=== PATIENT | female | born 1965 | race Caucasian/White ===

== ENCOUNTER 2017-12-30 12:09 | Emergency (ER) | payer OTHER ==
[2017-12-30 14:08] LABS: Absolute Lymphocytes (CBC) 2.5 K/uL (0.7-4.9); Absolute Monocytes 0.7 K/uL (0.1-1.3); Absolute Neutrophil 9.6 K/uL (1.8-8.0); Basophils % 0.8 % (0-1.3); Eosinophils % 0.7 % (0-4.4); Hematocrit 51.7 % (36.0-45.0); MCH 28.7 pg (27.0-35.0); MPV 10.2 fL (7.6-11.3); Monocytes % 5.1 % (3.3-12.3); RBC Red Blood Cell Count 5.81 M/uL (3.86-4.86)
[2017-12-30 14:23] LABS: Bicarbonate 23 mEq/L (21-31); Glucose Level 117 mg/dL (65-120); Lipase 14 U/L (22-51); Potassium 3.3 mEq/L (3.6-5.0); Sodium Level 139 mEq/L (135-145)
[2017-12-30 14:29] LABS: ALT/SGPT 16 IU/L (10-60); AST/SGOT 20 IU/L (10-42); Albumin 4.4 g/dL (3.2-5.5); Alkaline Phosphatase 76 IU/L (42-121); Amylase Level 25 U/L (28-100); BUN Blood Urea Nitrogen 17 mg/dL (6-20); Bilirubin Direct 0.2 mg/dL (0-0.2); Glomerular Filtration Rate > 90 mL/min (=/>90); Protein, Total 7.1 g/dL (6.0-8.3)
[2017-12-30 14:30] LABS: Glomerular Filtration Rate > 60 mL/min (>60)
[2017-12-30] MEDS ORDERED: PROMETHAZINE 25 MG/ML VIAL ONE (14:37)
[2017-12-30] MEDS ORDERED: NA CHLORIDE 0.9% 1,000 ML ONE (14:38)
[2017-12-30] MEDS ORDERED: ONDANSETRON 4 MG/2 ML VIAL ONE ×2 (14:38→16:07)
[2017-12-30] MEDS ORDERED: PANTOPRAZOLE 40 MG INJ ONE (14:38)
[2017-12-30] MEDS ORDERED: MORPHINE 4 MG/ML SYR ONE ×2 (14:38→17:25)
[2017-12-30 14:47] LABS: Anisocytosis 1+; Blood Morphology Comment NOTED (NOT SEEN); Platelet Estimate ADEQ; Urine White Blood Cell Casts OK
--- NOTE | 2017-12-30 15:19 | EKG ---
Test Date: 2017-12-30 Test Time: 14:03:18 Hydrodynamics Teacher: LUISITO MEASUREMENT RESULTS: Intervals: Rate: 84 WI: 128 QRSD: 74 QT: 400 QTc: 472 [place]: P: 51 WI: 128 QRS: 4 T: 30 INTERPRETIVE STATEMENTS: Sinus rhythm with marked sinus arrhythmia Right atrial enlargement Moderate voltage criteria for LVH, may be normal variant Borderline ECG Compared to ECG 03/27/2017 23:35:14 Atrial abnormality now present Left ventricular hypertrophy now present Electronically Signed On 12-30-17 15:18:51 CDT by Scott Arteaga
--- NOTE | 2017-12-30 15:33 | RAD REPORT ---
EXAM DESCRIPTION: RAD - Chest Single View - 12/30/2017 3:27 pm CLINICAL HISTORY: Chest pain, nausea and vomiting. COMPARISON: 03/27/2017 FINDINGS: Portable technique limits examination quality. The lungs are grossly clear. The heart is normal in size. No displaced fractures. IMPRESSION: No acute intrathoracic process suspected.
[2017-12-30] MEDS ORDERED: HYDROCORTISONE SUC 100 MG INJ ONE (16:07)
[2017-12-30 16:58] LABS: Urine Blood 2+ (NEG); Urine Glucose NEGATIVE (NEG); Urine Protein NEGATIVE (NEG); Urine pH 6.5 (5.0-7.0)
[2017-12-30 16:59] LABS: Urine Bacteria 20-50 /HPF (<20); Urine Culture Reflex Order REFLEXED
--- NOTE | 2017-12-30 17:55 | RAD REPORT ---
EXAM DESCRIPTION: CTAbdomen Pelvis W Contrast - 12/30/2017 5:44 pm CLINICAL HISTORY: Abdominal pain. Nausea and vomiting. COMPARISON: 03/28/2017, 11/18/2016, 02/11/2012 TECHNIQUE: Biphasic CT imaging of the abdomen and pelvis was performed with 100 ml non-ionic IV cont rast. All CT scans are performed using dose optimization technique as appropriate and may include automated exposure control or mA/KV adjustment according to patient size. FINDINGS: The lung bases are clear. The liver contains a few low-density lesions, likely benign cysts but incompletely assessed. The sple en, pancreas, right adrenal gland and kidneys are within normal limits. 19 mm left adrenal lesion is again noted, unchanged. No bowel obstruction, free air, free fluid or abscess. The appendix is normal. No evidence of signi ficant lymphadenopathy. No suspicious bony findings. IMPRESSION: No acute intra-abdominal or pelvic finding. Stable 19 mm left adrenal mass.
--- NOTE | 2017-12-30 18:10 | EDPHYS ---
Physician Documentation [facility] Name: Eli Butler Age: 52 yrs Sex: Female : 1965 Arrival Date: 12/30/2017 Time: 12:11 Bed 26 Private MD: ED Physician Derrick Watson HPI: 12/30 13:50 This 52 yrs old Female presents to ER via Ambulatory with complaints of cp Nausea/Vomiting, Rib Pain. 13:50 The patient presents to the emergency department with nausea, that is moderate, cp vomiting, 6 times today. Onset: The symptoms/episode began/occurred today. 13:50 Possible causes: unknown. cp 13:50 Associated signs and symptoms: Pertinent positives: abdominal pain, Pertinent cp negatives: constipation, fever, GI bleeding. Severity of symptoms: in the emergency department the symptoms are unchanged despite home interventions. 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 - Social history:: Smoking status: Patient/guardian denies using tobacco. ROS: 13:57 Constitutional: Negative for body aches, chills, fever, poor PO intake. cp 13:57 Eyes: Negative for injury, pain, redness, and discharge. cp 13:57 ENT: Negative for drainage from ear(s), ear pain, sore throat, difficulty swallowing, cp difficulty handling secretions. 13:57 Cardiovascular: Positive for right lateral chest pain, Negative for palpitations. cp 13:57 Respiratory: Negative for cough, shortness of breath, wheezing. 13:57 Abdomen/GI: Positive for abdominal pain, nausea, vomiting, Negative for constipation, hematemesis, black/tarry stool, rectal bleeding. 13:57 : Negative for urinary symptoms. 13:57 Skin: Negative for cellulitis, rash. 13:57 Neuro: Negative for altered mental status, dizziness, weakness. 13:57 All other systems are negative. Exam: 14:10 ECG was reviewed by the Attending Physician. cp 14:15 Head/Face: Normocephalic, atraumatic. cp 14:15 Constitutional: The patient appears in no acute distress, alert, awake, non-diaphoretic, non-toxic, well developed, well nourished, uncomfortable. 14:15 Eyes: Periorbital structures: appear normal, Pupils: equal, round, and reactive to cp light and accomodation, Extraocular movements: intact throughout, Conjunctiva: normal, no exudate, no injection, Sclera: no appreciated abnormality, Lids and lashes: appear normal, bilaterally. 14:15 ENT: External ear(s): are unremarkable, Ear canal(s): are normal, clear, TM's: bulging, cp is not appreciated, bilaterally, dullness, bilaterally, erythema, is not appreciated, bilaterally, Nose: is normal, Mouth: Lips: moist, Oral mucosa: moist, Posterior pharynx: Airway: no evidence of obstruction, patent, Tonsils: are normal in appearance, Uvula: midline, swelling, is not appreciated, erythema, that is mild, exudate, is not appreciated. 14:15 Neck: ROM/movement: is normal, is supple, without pain, no range of motions cp limitations, no meningismus, no nuchal rigidity. 14:15 Chest/axilla: Inspection: normal, Palpation: is normal, no crepitus, no tenderness. 14:15 Cardiovascular: Rate: tachycardic, Rhythm: regular, Pulses: Pulses are 2+ in right radial artery and left radial artery. Edema: is not appreciated, JVD: is not appreciated. 14:15 Respiratory: the patient does not display signs of respiratory distress, Respirations: normal, no use of accessory muscles, no retractions, no splinting, no tachypnea, labored breathing, is not present, Breath sounds: are clear throughout, no decreased breath sounds, no stridor, no wheezing. 14:15 Abdomen/GI: Inspection: abdomen appears normal, Bowel sounds: active, all quadrants, Palpation: soft, in all quadrants, moderate abdominal tenderness, in the epigastric area, rebound tenderness, is not appreciated, voluntary guarding, is elicited in the epigastric area, involuntary guarding, is not appreciated. 14:15 Back: CVA tenderness, is absent. 14:15 Skin: cellulitis, is not appreciated, no rash present. 14:15 Neuro: Orientation: to person, place \T\ time. Mentation: is normal, Cerebellar function: is grossly normal, Motor: moves all fours, strength is normal, Sensation: is normal. Vital Signs: 12:19 BP 179 / 121 RA; Pulse 103; Resp 18; Temp 98.0(TE); Pulse Ox 100% on R/A; Weight 68.95 lk1 kg (R); Height 5 ft. 6 in. (167.64 cm) (R); Pain 10/10; 12:19 BP 183 / 126 LA; lk1 14:23 BP 174 / 111; Pulse 108; Resp 17; Pulse Ox 99% on R/A; dh3 14:53 BP 164 / 98; Pulse 106; Resp 17; Pulse Ox 98% on R/A; dh3 15:02 BP 175 / 109; Pulse 109; Resp 19; Pulse Ox 99% on R/A; dh3 16:51 BP 168 / 107; Pulse 92; Resp 17; Pulse Ox 97% on R/A; dh3 18:30 BP 156 / 94; Pulse 99; Resp 17; Pulse Ox 98% on R/A; kr2 12:19 Body Mass Index 24.53 (68.95 kg, 167.64 cm) lk1 MDM: 13:32 Patient medically screened. cp 16:00 Differential diagnosis: gastritis, pancreatitis, appendicitis, viral gastroenteritis, cp gastroenteritis, dehydration, electrolyte abnormality. 18:07 Data reviewed: vital signs, nurses notes, lab test result(s), EKG, radiologic studies, cp CT scan, plain films. Response to treatment: the patient's symptoms have markedly improved after treatment, VSS. Nausea and pain improved, vomiting resolved. 12/30 13:45 Order name: Amylase, Serum; Complete Time: 15:13 cp 12/30 17:04 Interpretation: YOLANDA 25; Reviewed. 12/30 13:45 Order name: Basic Metabolic Panel; Complete Time: 15:13 cp 12/30 17:04 Interpretation: Normal except: K 3.3. cp 12/30 13:45 Order name: CBC with Diff; Complete Time: 15:13 cp 12/30 17:04 Interpretation: Normal except: WBC 12.9; RBC 5.81; HGB 16.7; HCT 51.7; RDW 15.5; DUANE% cp 74.4; NEUT A 9.6. 12/30 13:45 Order name: Creatinine for Radiology; Complete Time: 15:13 cp 04 13:45 Order name: Hepatic Function; Complete Time: 15:13 cp 04 13:45 Order name: Lipase; Complete Time: 15:13 cp 04/ 17:05 Interpretation: LIP 14; Reviewed. cp 04 13:45 Order name: Urine Microscopic Only; Complete Time: 17:03 cp 04 17:03 Interpretation: Normal except: UWBC 10-20; URBC 5-10; UBACT 20-50; SQEPI 10-20. cp 04 13:45 Order name: Magnesium; Complete Time: 15:13 cp 04 13:45 Order name: Troponin I; Complete Time: 15:13 cp 04 14:12 Order name: CBC Smear Scan; Complete Time: 15:13 EDHI 12/30 15:17 Order name: CT Abd/Pelvis - W/Contrast; Complete Time: 17:56 cp 12/30 16:55 Order name: Urine Dipstick--Ancillary (enter results); Complete Time: 17:03 bd 04 17:03 Interpretation: Normal except: UBLD 2+; U NIT POSITIVE; UESTR TRACE. cp 12/30 16:55 Order name: Urine --Ancillary (enter results); Complete Time: 17:03 bd 04 17:00 Order name: Urine Culture [facility] 12/30 15:17 Order name: XRAY Chest (1 view); Complete Time: 17:03 cp 04 13:45 Order name: Urine Test (obtain specimen); Complete Time: 16:19 cp 04 13:45 Order name: IV Saline Lock; Complete Time: 15:32 cp 04 13:45 Order name: Labs collected and sent; Complete Time: 15:33 cp 04 13:45 Order name: Urine Dipstick-Ancillary (obtain specimen); Complete Time: 16:19 cp 04 13:45 Order name: EKG; Complete Time: 13:46 cp 04 13:45 Order name: EKG - Nurse/Tech; Complete Time: 15:32 cp EC:10 Rate is 84 beats/min. Rhythm is regular. MI interval is normal. QRS interval is normal. cp QT interval is normal. T waves are Inverted in lead III. No ST changes noted. Interpreted by me. Reviewed by me. Administered Medications: Discontinued: NS 0.9% 1000 ml IV at 100 ml/hr continuous 14:32 Drug: Zofran 4 mg Route: IVP; Site: left antecubital; kr2 15:00 Follow up: Response: No adverse reaction; Nausea is decreased kr2 14:32 Drug: NS 0.9% 1000 ml Route: IV; Rate: 100 ml/hr; Site: left antecubital; kr2 16:30 Follow up: Response: No adverse reaction; IV Status: Order to discontinue infusion kr2 18:28 Follow up: Response: No adverse reaction kr2 14:33 Drug: ProTONIX 40 mg Route: IVP; Site: left antecubital; kr2 15:00 Follow up: Response: No adverse reaction; Nausea is decreased kr2 14:33 Drug: morphine 4 mg Route: IVP; Site: left antecubital; kr2 15:00 Follow up: Response: No adverse reaction kr2 14:33 Drug: NS 0.9% 500 ml Route: IV; Rate: bolus; Site: left antecubital; kr2 15:45 Follow up: Response: No adverse reaction; IV Status: Completed infusion kr2 14:33 Drug: Phenergan 25 mg Route: IVP; Site: left antecubital; kr2 17:08 Follow up: Response: No adverse reaction kr2 15:53 Drug: Solu-CORTEF 100 mg Route: IVP; Site: left antecubital; kr2 17:08 Follow up: Response: No adverse reaction kr2 15:53 Drug: Zofran 4 mg Route: IVP; Site: left antecubital; kr2 17:08 Follow up: Response: No adverse reaction; Nausea is decreased kr2 16:10 Drug: Zofran 4 mg Route: IVP; Site: left antecubital; kr2 16:20 Follow up: Response: No adverse reaction; Nausea is decreased kr2 16:40 Drug: morphine 4 mg Route: IVP; Site: left antecubital; kr2 17:00 Follow up: Response: No adverse reaction; Pain is decreased kr2 18:02 Not Given (Physician Discretion): Potassium Effervescent Tablet 25 mEq PO once; cp dissolve in 4 ounces of water or juice 18:07 Drug: Rocephin - (cefTRIAXone) 1 grams Route: IVPB; Infused Over: 30 mins; Site: left kr2 antecubital; 18:27 Follow up: Response: No adverse reaction; IV Status: Completed infusion kr2 18:07 Drug: cloNIDine 0.1 mg Route: PO; kr2 18:27 Follow up: Response: No adverse reaction kr2 18:07 Drug: Potassium Chloride 40 mEq Route: PO; kr2 18:26 Follow up: Response: Medication administered at discharge. kr2 18:08 Drug: TORadol 30 mg Route: IVP; Site: left antecubital; kr2 18:26 Follow up: Response: No adverse reaction kr2 Disposition: 12/31 13:18 Co-signature as Attending Physician, Derrick Watson MD. caren Disposition: 12/30/17 18:10 Discharged to Home. Impression: Urinary tract infection, site not specified, Nausea and vomiting, Other chest pain - Right Lateral Rib Pain. - Condition is Stable. - Discharge Instructions: Nausea and Vomiting, Urinary Tract Infection. - Prescriptions for Protonix 40 mg Oral Tablet - take 1 tablet by ORAL route once daily; 30 tablet. Bactrim DS 800- 160 mg Oral Tablet - take 1 tablet by ORAL route every 12 hours for 7 days; 14 tablet. Phenergan 25 mg Rectal Suppository - insert 1 suppository by RECTAL route every 6 hours As needed; 12 suppository. promethazine 25 mg Oral Tablet - take 1 tablet by ORAL route every 6 hours As needed; 20 tablet. - Medication Reconciliation Form, Thank You Letter, Antibiotic Education, Prescription Opioid Use form. - Follow up: Private Physician; When: 1 - 2 days; Reason: Recheck today's complaints. - Problem is new. - Symptoms have improved. Signatures: Dispatcher [employer] EDMS Crow Gregory PA PA cp Kluge, Leah RN RN lk1 Derrick Watson MD MD gs Savanna Danielle RN RN kr2
--- NOTE | 2017-12-30 18:10 | ER ---
Nurse's Notes [facility] Name: Eli Butler Age: 52 yrs Sex: Female : 1965 Arrival Date: 12/30/2017 Time: 12:11 Bed 26 Private MD: Diagnosis: Urinary tract infection, site not specified;Nausea and vomiting;Other chest pain-Right Lateral Rib Pain Presentation: 12/30 12:17 Presenting complaint: Patient states: "I have extreme nausea and vomiting and I think I lk1 broke my ribs when I vomited. I can't keep my medicine down.". Transition of care: patient was not received from another setting of care. Onset of symptoms was December 30, 2017 at 07:00. Care prior to arrival: None. 12:17 Method Of Arrival: Ambulatory lk1 12:17 Acuity: ZENAIDA 3 lk1 Triage Assessment: 12:18 General: Appears uncomfortable, ill, Behavior is calm, cooperative, appropriate for lk1 age. Pain: Complains of pain in right lateral posterior chest Pain currently is 10 out of 10 on a pain scale. GI: Reports nausea, vomiting. CASE MGR: 12:19 LMP N/A - Post-menopause lk1 Historical: - Allergies: 12:18 No Known Allergies; lk1 - PMHx: 12:18 [place]'s disease; autoimmune disease; Chronic pain; Hypertension; Osteoporosis; COPD; lk1 - PSHx: 12:18 Tubal ligation; lk1 - Immunization history:: Adult Immunizations up to date. - Social history:: Smoking status: Patient/guardian denies using tobacco. Screenin:45 Abuse screen: Denies threats or abuse. Denies injuries from another. Nutritional kr2 screening: No deficits noted. Tuberculosis screening: No symptoms or risk factors identified. Fall Risk None identified. Assessment: 13:45 General: Appears in no apparent distress. uncomfortable, unkempt, well developed, well kr2 nourished, Behavior is calm, cooperative, appropriate for age. Pain: Complains of pain in suprapubic area and pelvis Pain currently is 8 out of 10 on a pain scale. Quality of pain is described as aching, tender, Pain began gradually, Is continuous, Alleviated by medications, rest, Aggravated by increased activity. Neuro: Level of Consciousness is awake, alert, obeys commands, Oriented to person, place, time, situation, Appropriate for age. Cardiovascular: Capillary refill < 3 seconds in bilateral fingers Patient's skin is warm and dry. Respiratory: Airway is patent Respiratory effort is even, unlabored, Respiratory pattern is regular, symmetrical. GI: Abdomen is flat, non-distended, Bowel sounds present X 4 quads. Abd is soft X 4 quads Abdomen is tender to palpation in suprapubic area Reports nausea, vomiting. : Reports pain in suprapubic area Denies burning with urination. EENT: Oral mucosa is moist. Derm: Skin is intact, is healthy with good turgor, Skin is pink, warm \\T\\ dry. Musculoskeletal: Circulation, motion, and sensation intact. 15:00 Reassessment: Patient appears in no apparent distress at this time. Patient and/or kr2 family updated on plan of care and expected duration. Pain level reassessed. Patient is alert, oriented x 3, equal unlabored respirations, skin warm/dry/pink. Patient states symptoms have improved. 16:35 Reassessment: Patient appears in no apparent distress at this time. Patient and/or kr2 family updated on plan of care and expected duration. Pain level reassessed. Patient is alert, oriented x 3, equal unlabored respirations, skin warm/dry/pink. Patient complains of abdominal pain 7/10. MD notified, and ,medications ordered, see MAR. 17:30 Reassessment: Patient appears in no apparent distress at this time. Patient and/or kr2 family updated on plan of care and expected duration. Pain level reassessed. Patient is alert, oriented x 3, equal unlabored respirations, skin warm/dry/pink. Patient states feeling better. 18:00 Reassessment: Patient appears in no apparent distress at this time. Patient and/or kr2 family updated on plan of care and expected duration. Pain level reassessed. Patient is alert, oriented x 3, equal unlabored respirations, skin warm/dry/pink. Complains of pain returning and rates it a 3/10. Orders for medication, see NOV. Vital Signs: 12:19 BP 179 / 121 RA; Pulse 103; Resp 18; Temp 98.0(TE); Pulse Ox 100% on R/A; Weight 68.95 lk1 kg (R); Height 5 ft. 6 in. (167.64 cm) (R); Pain 10/10; 12:19 BP 183 / 126 LA; lk1 14:23 BP 174 / 111; Pulse 108; Resp 17; Pulse Ox 99% on R/A; dh3 14:53 BP 164 / 98; Pulse 106; Resp 17; Pulse Ox 98% on R/A; dh3 15:02 BP 175 / 109; Pulse 109; Resp 19; Pulse Ox 99% on R/A; dh3 16:51 BP 168 / 107; Pulse 92; Resp 17; Pulse Ox 97% on R/A; dh3 18:30 BP 156 / 94; Pulse 99; Resp 17; Pulse Ox 98% on R/A; kr2 12:19 Body Mass Index 24.53 (68.95 kg, 167.64 cm) lk1 ED Course: 12:11 Patient arrived in ED. as 12:18 Triage completed. lk1 12:20 Arm band placed on left wrist. lk1 13:32 Crow Gregory PA is PHCP. cp 13:32 Derrick Watson MD is Attending Physician. cp 14:09 EKG done, by iv technician. reviewed by Crow GRAJEDA. vh 14:14 Inserted saline lock: 22 gauge in left antecubital area, using aseptic technique. dh3 14:15 Savanna Danielle, RN is Primary Nurse. kr2 15:27 XRAY Chest (1 view) In Process Unspecified. EDMS 15:27 X-ray completed. Portable x-ray completed in exam room. Patient tolerated procedure kc2 well. 16:18 Urine collected: clean catch specimen, cloudy, dax colored. dh3 17:44 CT Abd/Pelvis - W/Contrast In Process Unspecified. EDMS 18:24 Patient has correct armband on for positive identification. Bed in low position. Call kr2 light in reach. Side rails up X2. Pulse ox on. NIBP on. Door closed. Warm blanket given. Head of bed elevated. 18:25 No provider procedures requiring assistance completed. IV discontinued, intact, kr2 bleeding controlled, No redness/swelling at site. Pressure dressing applied. Administered Medications: Discontinued: NS 0.9% 1000 ml IV at 100 ml/hr continuous 14:32 Drug: Zofran 4 mg Route: IVP; Site: left antecubital; kr2 15:00 Follow up: Response: No adverse reaction; Nausea is decreased kr2 14:32 Drug: NS 0.9% 1000 ml Route: IV; Rate: 100 ml/hr; Site: left antecubital; kr2 16:30 Follow up: Response: No adverse reaction; IV Status: Order to discontinue infusion kr2 18:28 Follow up: Response: No adverse reaction kr2 14:33 Drug: ProTONIX 40 mg Route: IVP; Site: left antecubital; kr2 15:00 Follow up: Response: No adverse reaction; Nausea is decreased kr2 14:33 Drug: morphine 4 mg Route: IVP; Site: left antecubital; kr2 15:00 Follow up: Response: No adverse reaction kr2 14:33 Drug: NS 0.9% 500 ml Route: IV; Rate: bolus; Site: left antecubital; kr2 15:45 Follow up: Response: No adverse reaction; IV Status: Completed infusion kr2 14:33 Drug: Phenergan 25 mg Route: IVP; Site: left antecubital; kr2 17:08 Follow up: Response: No adverse reaction kr2 15:53 Drug: Solu-CORTEF 100 mg Route: IVP; Site: left antecubital; kr2 17:08 Follow up: Response: No adverse reaction kr2 15:53 Drug: Zofran 4 mg Route: IVP; Site: left antecubital; kr2 17:08 Follow up: Response: No adverse reaction; Nausea is decreased kr2 16:10 Drug: Zofran 4 mg Route: IVP; Site: left antecubital; kr2 16:20 Follow up: Response: No adverse reaction; Nausea is decreased kr2 16:40 Drug: morphine 4 mg Route: IVP; Site: left antecubital; kr2 17:00 Follow up: Response: No adverse reaction; Pain is decreased kr2 18:02 Not Given (Physician Discretion): Potassium Effervescent Tablet 25 mEq PO once; cp dissolve in 4 ounces of water or juice 18:07 Drug: Rocephin - (cefTRIAXone) 1 grams Route: IVPB; Infused Over: 30 mins; Site: left kr2 antecubital; 18:27 Follow up: Response: No adverse reaction; IV Status: Completed infusion kr2 18:07 Drug: cloNIDine 0.1 mg Route: PO; kr2 18:27 Follow up: Response: No adverse reaction kr2 18:07 Drug: Potassium Chloride 40 mEq Route: PO; kr2 18:26 Follow up: Response: Medication administered at discharge. kr2 18:08 Drug: TORadol 30 mg Route: IVP; Site: left antecubital; kr2 18:26 Follow up: Response: No adverse reaction kr2 Outcome: 18:10 Discharge ordered by MD. cp 18:25 Discharged to home ambulatory, with family. kr2 18:25 Condition: stable 18:25 Discharge instructions given to patient, family, Instructed on discharge instructions, follow up and referral plans. medication usage, Demonstrated understanding of instructions, follow-up care, medications, Prescriptions given X 4. 18:36 Patient left the ED. kr2 Addendum: 01/02/2018 07:46 Addendum: Culture Results: Positive urine culture. No further action required. Bacteria i w sensitive to prescribed antibiotic. Signatures: Dispatcher [employer] EDMS Maribeth Mcgarry Irene, RN RN iw Harrell, Venessa Crow Gregory PA PA cp Patti Ovalle, RN RN lk1 Linda Sin2 Droeen Jacobsen 3 Savanna Danielle RN RN kr2 Corrections: (The following items were deleted from the chart) 12/30 17:08 17:08 Response: No adverse reaction kr2 kr2
[2017-12-30] MEDS ORDERED: KETOROLAC 30 MG/ML INJ ONE (18:25)
[2017-12-30] MEDS ORDERED: CEFTRIAXONE/SWI 1gm 1 GM/10 ML SYR ONE (18:25)
[2017-12-30] MEDS ORDERED: cloNIDine HCl 0.1 MG TAB ONE (18:25)
[2017-12-30] MEDS ORDERED: POTASSIUM CL SA 10 MEQ TAB PO ONE ×2 (18:25→18:33)
[2017-12-30 18:48] VITALS: TEMP 98
[2017-12-30 18:54] VITALS: BP 156/94; O2SAT 98
== END 2017-12-30 18:36 | disposition home or self-care (01) ==
LOC: ER 12:09
DX: N39.0 Urinary tract infection, site not specified (principal); R07.89 Other chest pain; I10 Essential (primary) hypertension
CPT/HCPCS: 36415; 71045; 74177; 80048; 80076; 81025; 82150; 83690; 83735; 84484; 85025; 87086; 87088; 93005; C9113; J0696; J1720; J2405 ×2; J2550; J7030; Q9967; 81003; 81015; 87077; 87186; 96361; 96365; 96375; 99284